=== PATIENT | female | born 1990 | race Caucasian/White ===

== ENCOUNTER → 2016-05-19 | Outpatient (CLI) | payer OTHER ==
[~2016-05-19] MED LIST: GADOBUTROL 10 ML VIAL IVP ONE
== END ==
LOC: FIMAGING 09:25
PROVIDERS: ATTEND Obstetrics & Gynecology
DX: D35.2 Benign neoplasm of pituitary gland (principal)
CPT/HCPCS: A9585

== ENCOUNTER 2016-06-18 22:37 | Emergency (ER) | payer OTHER ==
[2016-06-18 22:42] VITALS: TEMP 98.4; O2SAT 95
--- NOTE | 2016-06-18 22:59 | EDPHY ---
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 She immediately had pain. The pain got better. However she was moving another patient this evening developed worsening right anterior shoulder pain. It hurts with movement. No other signs of trauma. No direct falling or other signs of significant trauma. Her pain is anterior shoulder deep, worse with abduction of her arm, as well as hurts with resistance, also hurts with turning her thumb up and down. No numbness or tingling. No arm weakness. 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 Exam Constitutional appears well nontoxic triage nursing summary reviewed, vital signs reviewed, awake/alert. Eyes normal conjunctivae and sclera, EOMI, PERRLA. HENT normal inspection, atraumatic, moist mucus membranes, no epistaxis, neck supple/ no meningismus, no raccoon eyes. Respiratory clear to auscultation bilaterally, normal breath sounds, no respiratory distress, no wheezing. Cardiovascular rate normal, regular rhythm, no murmur, no edema, distal pulses normal. Gastrointestinal soft, non-tender, no rebound, no guarding, normal bowel sounds, no distension, no pulsatile mass. Genitourinary no CVA tenderness. Musculoskeletal right shoulder exam: tender palpation on deep palpation to the anterior shoulder. Has pain with abduction of the right arm, no weakness, neurovascular intact distally, no significant swelling. Good cap refill, warm extremity. Pain with abduction as well as pronation supination of the hand. no midline vertebral tenderness, full range of motion, no calf swelling, no tenderness of extremities, no meningismus, good pulses, neurovascularly intact. Skin pink, warm, & dry, no rash, skin atraumatic. Neurologic awake, alert and oriented x 3, AAOx3, moves all 4 extremities equally, motor intact, sensory intact, CN II-XII intact, normal cerebellar, normal vision, normal speech. Psychiatric normal mood/affect. Heme/Lymph/Immune no lymphadenopathy. Differential Diagnosis: Includes but is not limited to in a particular order rotator cuff injury, AC joint separation, doubt bony fracture Medical Decision Making: plan for this patient x-ray right shoulder, sling, anti -inflammatory pain medicine and ice. She is unemployed she will need to follow up with [facility] given this is a work related injury. I will also refer her to Orthopedics. Most likely she has a rotator cuff injury. Re-evaluation: ED x-ray right shoulder. Interpreted by myself. No acute fracture. 1206AM: Patient given ibuprofen for pain control in the emergency room. Do recommend sling, follow up with Orthopedics, employee health, ibuprofen. She understands she understands return to the emergency room if any further symptoms questions or concerns. Source: Patient - Personal History LMP (Females 10-55): Over 28 Days Ago - Medical/Surgical History Hx Asthma: No Hx Chronic Respiratory Disease: No Hx Diabetes: No Hx Cardiac Disease: No Hx Renal Disease: No Hx Cirrhosis: No Hx Alcoholism: No Hx HIV/AIDS: No Hx Splenectomy or Spleen Trauma: No Other PMH: pitiary tumor - Social History Smoking Status: Never smoked Constitutional: Initial Vital Signs Temperature (C) 36.9 C 06/18/16 22:39 Heart Rate 79 06/18/16 22:39 Respiratory Rate 20 06/18/16 22:39 Blood Pressure 112/68 06/18/16 22:39 O2 Sat (%) 95 06/18/16 22:39 O2 Delivery Mode Room Air Allergies/Adverse Reactions: No Known Allergies Allergy (Unverified 06/18/16 22:38) Home Medications: Medication Instructions Recorded NK [No Known Home Meds] 01/01/15 Medical Decision Making - Diagnostics Imaging: Imaging Impressions Shoulder X-Ray 06/18/16 23:03 Impression: Normal. - Data Points Medications Given: Discontinued Medications Ibuprofen (Motrin) 600 mg PO EDNOW ONE Stop: 06/19/16 00:00 Last Admin: 06/19/16 00:02 Dose: 600 mg Departure - Departure Disposition: Home, Routine, Self-Care Clinical Impression: Rotator cuff injury Qualifiers: Encounter type: initial encounter Laterality: right Qualified Code(s): S46.001A - Unspecified injury of muscle(s) and tendon(s) of the rotator cuff of right shoulder, initial encounter Condition: Good Instructions: Rotator Cuff Injury (ED) Additional Instructions: 1. Stay in your sling for comfort. 2.Ice her shoulder. 3.Follow up with employee health. 4.Follow up with Orthopedics. Referrals: EZEKIEL RIZO [Primary Care Provider] - As per Instructions Pete Mckenna MD [Medical Doctor] - As per Instructions
[2016-06-18] MEDS ORDERED: IBUPROFEN 600 MG TAB PO ONE (23:59)
[2016-06-19] MEDS ORDERED: IBUPROFEN 600 MG TAB PO ONE
[2016-06-19 00:23] VITALS: BP 132/95; PULSE 75; RESP 16
== END 2016-06-19 00:23 | disposition home or self-care (01) ==
DX: S46.001A Unspecified injury of muscle(s) and tendon(s) of the rotator cuff of right shoulder, initial encounter (principal); X58.XXXA Exposure to other specified factors, initial encounter; Y92.239 Unspecified place in hospital as the place of occurrence of the external cause; Y99.0 Civilian activity done for income or pay; Y93.89 Activity, other specified
CPT/HCPCS: A4565

== ENCOUNTER → 2016-11-29 | Outpatient (CLI) | payer OTHER | LOC: FIMAGING 09:35 | PROVIDERS: ATTEND Orthopaedic Surgery | DX: S73.192A Other sprain of left hip, initial encounter (principal); R60.0 Localized edema ==

== ENCOUNTER → 2018-01-21 | Outpatient (CLI) | payer OTHER | LOC: FIMAGING 10:36 | PROVIDERS: ATTEND Neurological Surgery | DX: M54.6 Pain in thoracic spine (principal) ==

== ENCOUNTER 2018-02-15 05:47 | Inpatient (IN) | payer OTHER ==
--- NOTE | 2018-02-08 07:54 | PDANEPAE ---
ANE History of Present Illness L hip pain and labral tear, here for femoroplasty and labral repair ANE Past Medical History - Cardiovascular History Hx Hypertension: No Hx Arrhythmias: No Hx Chest Pain: No Hx Coronary Artery / Peripheral Vascular Disease: No Hx CHF / Valvular Disease: No Hx Palpitations: No - Pulmonary History Hx COPD: No Hx Asthma/Reactive Airway Disease: No Hx Recent Upper Respiratory Infection: No Hx Oxygen in Use at Home: No Hx Sleep Apnea: No - Neurologic History Hx Cerebrovascular Accident: No Hx Seizures: No Hx Dementia: No - Endocrine History Hx Diabetes: No - Renal History Hx Renal Disorders: No - Liver History Hx Hepatic Disorders: No - Neurological & Psychiatric Hx Hx Neurological and Psychiatric Disorders: No - Cancer History Hx Cancer: No - Congenital Disorder History Hx Congenital Disorders: No - GI History Hx Gastrointestinal Disorders: No - Other Health History Other Health History: neg - Chronic Pain History Chronic Pain: Yes (l hip pain) - Surgical History Prior Surgeries: pituatary tumor removed ANE Review of Systems Review of Systems: ANE Patient History - Allergies Allergies/Adverse Reactions: No Known Allergies Allergy (Unverified 06/18/16 22:38) - Home Medications Home Medications: Herbals/Supplements -Info Only 02/01/18 [Last Taken Unknown] Ibuprofen 02/01/18 [Last Taken Unknown] - Smoking Hx Smoking Status: Never smoked - Family Anes Hx Family Hx Anesthesia Complications: neg ANE Physical Exam - Airway Neck exam: FROM Mallampati Score: Class 1 Mouth exam: normal dental/mouth exam - Pulmonary Pulmonary: no respiratory distress - Cardiovascular Cardiovascular: regular rate and rhythym - ASA Status ASA Status: I ANE Anesthesia Plan Anesthesia Plan: general endotracheal anesthesia Total IV Anesthesia: No
--- NOTE | 2018-02-14 21:11 | PDGENHP ---
History and Physical - Chief Complaint Left Hip Pain - History of Present Illness 1.~Bilateral~Hip Dyplasia: LEFT MORE SYMPTOMATIC THAN RIGHT 2.~Bilateral~Femoroacetabular impingement (LUCY) Cam type,~with~resultant labral tear HISTORY OF PRESENT ILLNESS: Madanis a 27 y.o.~very~~active female~who I have had the pleasure to consult on today. 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 ~Madanenjoys cycling, hiking, kayaking, camping, swimming, and going to the gym. Snehal's~bilateral~hip pain (LEFT>RIGHT)~started a year ago, with~no~recalled trauma or injury, and with no~previous complaints. Madandoes not have~a known history of hip dysplasia. Presentation today is of~lateral~bilateral~hip pain. ~The hip~does~wake her~at night and does~click and catch on her. Sitting~does not present a problem~for her.~Madandoes~report suffering from lower back pain episodes. Madanhas not~participated in physical therapy and has not~tried other conservative measures. Madanhas~utilized medication for pain management, including OTC acetaminophen.~Madanhas used medication since the pain began ~ Madanunderstands that she~has a hip and pelvis problem which should be researched and wishes to get a better understanding of her~hip status, followed by an establishment of a treatment strategy, hoping she~would be able to get back to her~well being active life. History: Past medical history:~~ Prolactinoma of Pituitary Relevant familial history:~None Past surgical history:~ No. Surgery Anesthesia 1 Pituitary adenoma general Madandenies problematic issues with general anesthesia in the past. I have reviewed, verified and agree with the past medical, surgical, family and social history. Current Medications:~has a current medication list which includes the following prescription(s): cholecalciferol (vitamin d3), cyanocobalamin (vitamin b-12), sodium chloride, and valacyclovir. ALLERGIES:~has No Known Allergies. Objective: Physical Examination: Snehal~is 5~feet 4~inches tall and weighs 115~Lbs. Snehal~is AAO x3; she~is well-nourished, in NAD. Skin is warm and dry. ~Breathing is non-labored. ~CV with RRR by pulse. Abdomen is soft, NTND. Currently,~she~walks with a normal~gait. Trendelenburg sign is~negative~and proprioception is normal,~both~sides. She~presents with mild~signs of joint laxity. Beightons Score:~4 (elbows and thumbs) Lower spine examination is~negative~for sciatic or femoral nerve irritation with negative~SLR &~femoral stretch tests. Range of motion of the spine is normal~for flexion, extension, and rotations, with no~associated pain. Strength, Sensation and pulses are~normal -~bilaterally Ankles and knees exams are~normal~and no~mal-alignment is evident. She~has no leg length discrepancy. Thigh circumference is~symmetric~with no evidence for muscle atrophy~on both~ sides. Hip ROM (degrees): FL ER At 90~hip FL IR At 90~hip FL AB AD EX IR Neutral hip ER Neutral hip R 110 45 50 40 5 15 60 30 L 120 45 45 40 5 15 60 20 Specific hip and pelvis tests: Impingement Test JOSÉ Roll Add. Longus R +++ +++ Negative Negative L +++ +++ ++ + Glut. Med ITB Posterior Imp R Negative 5/5 strength Negative 5/5 strength Negative L +++ 5/5 strength +++ 5/5 strength Negative Squeeze test measured~normal Bony Symphysis pubis is~pain free~to touch while concentric activity of the rectus abdominis, does not~produce pain at its insertion. Ilio Psos specific tests are~positive for pain during cycling for~both hips~and no snap. HF has~weakness and pain~both hips. Anterior/posterior~capsule tenderness bilateral Greater trochanteric burse is~pain free~on both hips. Piriformis tests: FAIR is~negative,~with no~local signs of neuritis related to sciatic nerve. SIJs examination is~produces pain on~both sides~(L>R)~with normal~JOSÉ in relation and local tenderness. Hamstrings tests are~negative~functional contraction and negative~tendinopathy both hips. On a daily basis, the following percentages reflectDaniel's overall total pain : Deep hip:~90% SIJ:~10% Imaging: Radiology studies which I have personally reviewed, analyzed and measured are below: XR: AP of the hip and pelvis: Performed in a~good~technique Coccyx to pubic symphysis distance~0.7~cm. 0~degrees [place] Lines are~preserved. Minimal~Pathological signs are seen in the Symphysis Pubis. Minimal~Pathological signs are seen at the Ischial tuberosity. ~ Specific measurements show: NSA~ LCE Sourcil~Angle Sharp's angle Lat. Cam Lat. Pincer C.Over~sign Head~Coverage % ATDmm R N 18 13 45 - - - 70 N L N 19 10 42 - - - 70 N Pos. wall sign ISS NAD ~~Dysplasia Comments R Negative Negative 18.7~mm +++ L Negative Negative 19.4~mm +++ Sclerosis Sup. Lat. OA Cysts Joint Space-WBZ Joint Space-Medial R Negative Negative Negative 4.1~mm 3.7~mm L Negative Negative Negative 4.2~mm 3.3~mm X Table lateral: Anterior cam lesion is~seen~on both hips. Alpha Angle: ~ Right~53~dergrees Left~55~degrees Impression and plan:Marina Hageris a 27 y.o.~active female~suffering from symptomatic Bilateral~hip pain due to Hip Dyplasia~and~Femoroacetabular impingement (LUCY) Cam type,~with~ resultant labral tear causing significant disability to~her~and altering her~ sport and life activities. Physical examination, imaging, and~her~story correspond with the diagnosis mentioned above. I explained that hip dysplasia is a condition wherein the hip joint has excessive play~and instability due to a variety of factors, including the depth and adequacy of the socket, the orientation of the femur bone, and ligament laxity around the hip joint. Dysplasia ranges in severity from borderline to shelia, with treatment options being specific to the specific nature of the problem. Left untreated, the instability in the hip joint can cause progressive tearing of the labrum and deterioration of the surface cartilage, ultimately resulting in progressive osteoarthritis of the hip. I explained that femoroacetabular impingement (LUCY - Cam type) arises due to a bony or soft tissue conflict between the femur (ball) and acetabulum (socket) caused by an abnormality in the shape of the femoral head and neck. Over time, repetitive impingement can result in damage to the labrum and adjacent surface cartilage within the socket, ultimately giving rise to progressive osteoarthritis of the hip. I explained that although a labral tear can be a source of pain, it is rarely the root of the problem and typically occurs secondary to an underlying abnormality in the shape and mechanics of the hip joint. I reviewed conservative treatment options for Dysplasia and LUCY including activity modification to avoid positions of impingement or instability, physical therapy, non-steroidal anti-inflammatory medications, and various injections (corticosteroid and PRP) aimed at reducing inflammation in the hip joint or/and preventing dynamic instability and impingement. PRP injections may promote healing and reduce symptoms in certain cases but it will not repair chronically damaged tissue. Although these measures may help to buy time~and reduce current level of symptoms, they are not a definitive solution to the problem given the underlying abnormality in the shape of the hip joint. Patients who have failed conservative management and continue to experience symptoms are candidates for definitive surgical treatment, which may consist of hip arthroscopy alone or in combination with more invasive bony realignment procedures of the hip socket and/or femur called periacetabular osteotomy (FRDEI) or derotational femoral osteotomy (DFO). Hip arthroscopy typically includes treating the labrum with either repair or reconstruction of the torn labrum; as well as addressing the underlying abnormalities by restoring the normal shape to the hip joint. If the cartilage is damaged a Microfracture surgical procedure may also be necessary to help stimulate the growth of fibrocartilage. If a patient requires a labral reconstruction or a Microfracture, the initial rehabilitation from the surgery may take longer, but the intermodal owner operator truck driver results are typically favorable. I reviewed the technical aspects of periacetabular osteotomy (FREDI) including risks, benefits, and expected course of recovery.~Snehal~understands that FREDI is an inpatient procedure carried out through two medium sized incisions on the front and back of the hip joint. The hip socket is cut, realigned, and stabilized with 2 3 internal screws. Risks include infection, bleeding, injury to nearby nerves or vessels, stiffness, persistent pain, instability, failure of bony healing, implant related complications, and venous thromboembolic disease. Rarely, revision surgery may be required to address these problems. Risks, potential complications, side effects and recovery from surgical procedure were discussed in length. We explained how this surgery is an open procedure, and though patients tend to do well in the long-term, it involves significant pain in the first 2-4 weeks post-op and a rather lengthy rehab.~Overall recovery takes approximately 6 12~months depending on the extent of damage and degree of repair. Madanunderstands that she~will undergo hip arthroscopy 1 week prior to the FREDI to address damage inside the hip joint. Snehal~understands that hip arthroscopy and FREDI are two separate procedures that are best performed one week apart, with the arthroscopy commencing first to "tighten up" any pathology evident in the hip joint (labral repair, etc.) and the FREDI open procedure occurring 7-10 days later to realign the acetabulum. Snehal~will review the info presented. In order to obtain more detailed information regarding the alignment, orientation, and shape of the bony hip and pelvis I will order a CT scan to be performed. The results of the CT scan, including femoral torsion and acetabular version measured values and 3D images, will aid me in deciding on the best treatment strategy and surgical pre-planning. In order to better evaluate the soft tissues and cartilage of the hip joint, I will order an MRI scan. We will refer Snehal to physical therapy~for at least~4~months. Madanis going to make a follow up appointment~after completing her~imaging studies. Madanis happy with this plan. I have also supplied~her~with handouts, outlining the expected surgical treatment and rehab involved. I wish~Snehal~all the best, ~~ Cristino Abbott, PAC History Information - Allergies/Home Medication List Allergies/Adverse Reactions: No Known Allergies Allergy (Unverified 06/18/16 22:38) Home Medications: Naproxen BID 02/09/18 [Last Taken Unknown] I have personally reviewed and updated: medical history - Social History Smoking Status: Never smoked Review of Systems Review of Systems: Physical Exam Physical Exam:
[2018-02-15] MEDS ORDERED: ACETAMINOPHEN 500 MG TAB PO ONE (06:07)
[2018-02-15] MEDS ORDERED: PREGABALIN 150 MG CAP PO ONE (06:07)
[2018-02-15] MEDS ORDERED: ceFAZolin 2 GM/DEXTROSE 100 ML IV ONE (06:07)
[2018-02-15] MEDS ORDERED: SCOPOLAMINE HYDROBROMIDE 1 MG/3 DAYS PATCH TD ONE (06:07)
[2018-02-15] MEDS ORDERED: TRANEXAMIC ACID 1,000 MG in NS 100 ML IV ONE (06:07)
[2018-02-15] MEDS ORDERED: MIDAZOLAM 2 MG/2 ML VIAL IVP ONE ×2 (06:07→07:11)
[2018-02-15] MEDS ORDERED: LIDOCAINE 1% 2 ML INJ ID PRN (06:08)
[2018-02-15] MEDS ORDERED: LR 1,000 ML IV ONE (06:08)
[2018-02-15] MEDS ORDERED: CITRATE DEXTROSE SOLN 500 ML BAG ONE (06:14)
--- NOTE | 2018-02-15 07:13 | PDANEPAE ---
ANE Past Medical History - Cardiovascular History Hx Hypertension: No Hx Arrhythmias: No Hx Chest Pain: No Hx Coronary Artery / Peripheral Vascular Disease: No Hx CHF / Valvular Disease: No Hx Palpitations: No - Pulmonary History Hx COPD: No Hx Asthma/Reactive Airway Disease: No Hx Recent Upper Respiratory Infection: No Hx Oxygen in Use at Home: No Hx Sleep Apnea: No Sleep Apnea Screening Result - Last Documented: Negative - Neurologic History Hx Cerebrovascular Accident: No Hx Seizures: No Hx Dementia: No - Endocrine History Hx Diabetes: No Obesity: no - Renal History Hx Renal Disorders: No - Liver History Hx Hepatic Disorders: No - Neurological & Psychiatric Hx Hx Neurological and Psychiatric Disorders: No - Cancer History Hx Cancer: No - Congenital Disorder History Hx Congenital Disorders: No - GI History Hx Gastrointestinal Disorders: No - Other Health History Other Health History: neg - Chronic Pain History Chronic Pain: Yes (l hip pain) - Surgical History Prior Surgeries: LT HIP FEMOROPLASTY,LABRAL REPAIR 02/08/18. pituatary tumor removed ANE Review of Systems Review of Systems: - Exercise capacity METS (RN): 4 METS ANE Patient History - Allergies Allergies/Adverse Reactions: No Known Allergies Allergy (Unverified 06/18/16 22:38) - Home Medications Home medications: home medication list seen and reviewed Home Medications: Naproxen BID 02/09/18 [Last Taken Unknown] - NPO status NPO Status: no food or drink >8 hours NPO Since - Liquids (Date): 02/14/18 NPO Since - Liquids (Time): 23:00 NPO Since - Solids (Date): 02/14/18 NPO Since - Solids (Time): 23:00 - Anes Hx Anes Hx: no prior problems - Smoking Hx Smoking Status: Never smoked - Family Anes Hx Family Hx Anesthesia Complications: neg ANE Labs/Vital Signs - Labs Result Diagrams: 02/15/18 06:20 - Vital Signs Blood Pressure: 130/72 Heart Rate: 93 Respiratory Rate: 17 O2 Sat (%): 97 Height: 160.02 cm Weight: 49.895 kg ANE Physical Exam - Airway Neck exam: FROM Mallampati Score: Class 1 Mouth exam: normal dental/mouth exam - Pulmonary Pulmonary: no respiratory distress, no rales or rhonchi, clear to auscultation - Cardiovascular Cardiovascular: regular rate and rhythym, no murmur, rub, or gallop - ASA Status ASA Status: I ANE Anesthesia Plan Anesthesia Plan: general endotracheal anesthesia, spinal (Morphine)
[2018-02-15] MEDS ORDERED: fentaNYL 100 MCG/2 ML INJ ONE ×2 (07:20→11:29)
[2018-02-15] MEDS ORDERED: PROPOFOL 200 MG/20 ML VIAL ONE (07:21)
[2018-02-15] MEDS ORDERED: morphINE PF 5 MG/10 ML INJ ONE (07:23)
[2018-02-15] MEDS ORDERED: DEXAMETHASONE 4 MG/ML VIAL ONE ×2 (07:41)
[2018-02-15] MEDS ORDERED: ROPIVACAINE HCL 150 MG/30 ML INJ ONE (07:41)
[2018-02-15] MEDS ORDERED: ROCURONIUM 50 MG/5 ML VIAL ONE (07:41)
[2018-02-15] MEDS ORDERED: ONDANSETRON 4 MG/2 ML VIAL ONE (10:45)
[2018-02-15] MEDS ORDERED: ESMOLOL HCL 100 MG/10 ML VIAL IV ONE (11:55)
[2018-02-15] MEDS ORDERED: fentaNYL 100 MCG/2 ML INJ IVP PRN (11:56)
[2018-02-15] MEDS ORDERED: NALOXONE HCL 0.4 MG/ML INJ IVP PRN ×3 (11:56→13:30)
[2018-02-15] MEDS ORDERED: LR 500 ML IV PRN (11:56)
[2018-02-15] MEDS ORDERED: DIAZEPAM 5 MG/ML 1 ML SYR IVP PRN (11:56)
[2018-02-15] MEDS ORDERED: PROMETHAZINE HCL 25 MG/ML INJ IVP PRN (11:56)
[2018-02-15] MEDS ORDERED: oxyCODONE IR 5 MG TAB PO PRN (11:56)
[2018-02-15] MEDS ORDERED: HYDROCODONE/APAP 5/325 TAB PO PRN (11:56)
[2018-02-15] MEDS ORDERED: DEXAMETHASONE 4 MG/ML VIAL IVP PRN (11:56)
[2018-02-15] MEDS ORDERED: ACETAMINOPHEN 500 MG TAB PO PRN (11:56)
[2018-02-15] MEDS ORDERED: LACTULOSE 20 GM/30 ML UDCUP PO PRN (12:55)
[2018-02-15] MEDS ORDERED: ONDANSETRON 4 MG/2 ML VIAL IVP PRN ×2 (12:55→13:30)
[2018-02-15] MEDS ORDERED: MAGNESIUM HYDROXIDE 30 ML UDCUP PO PRN (12:55)
[2018-02-15] MEDS ORDERED: POLYETHYLENE GLYCOL 3350 17 GM PKT PO PRN (12:55)
[2018-02-15] MEDS ORDERED: BISACODYL 10 MG SUPP PR PRN (12:55)
[2018-02-15] MEDS ORDERED: diphenhydrAMINE 25 MG CAP PO PRN (12:57)
[2018-02-15] MEDS ORDERED: METOCLOPRAMIDE 10 MG/2 ML VIAL IVP PRN ×2 (12:57→13:30)
[2018-02-15] MEDS ORDERED: HYDROmorphONE/DILAUDID 6 MG/30 ML PCA IV PRN (12:57)
[2018-02-15] MEDS ORDERED: NS 1,000 ML IV SCH (13:00)
--- NOTE | 2018-02-15 13:10 | POSTANESTH ---
Post Anesthetic Evaluation Cardiovascular Status: Similar to Pre-Op Cond (Tachycardic (110). Will observe and give a little fluid.) Respiratory Status: Normal, Stable, Similar to Pre-op Cond. Level of Consciousness/Mental Status: Can Participate in Eval, Alert and Oriented Pain Control: Adequate, Prn Tx Ordered Nausea/Vomiting Control: Adequate, Prn Tx Ordered Complications Possibly Related to Anesthesia: None Noted
[2018-02-15] MEDS ORDERED: RN MESSAGE:REGARDING ANALGESIC ORDERING DR MISC SCH (13:30)
[2018-02-15] MEDS ORDERED: oxyCODONE IR 15 MG TAB PO SCH (14:00)
[2018-02-15] MEDS: RN MESSAGE:DATE/TIME OF ADMIN MISC SCH (14:51)
[2018-02-15] MEDS: NAPROXEN SODIUM 220 MG TAB PO SCH ×2 (15:03→21:22)
--- NOTE | 2018-02-15 15:09 | PDMN ---
Medical Necessity Medical necessity: [facility] musculoskeletal sgy inpt only OP: Fox RAI -- [id number] APPROVED FOR INPT SURGERY 02/15/18
[2018-02-15] MEDS: oxyCODONE IR 5 MG TAB PO SCH ×3 (15:11→21:25)
[2018-02-15] MEDS: SENNOSIDES/DOCUSATE SODIUM TAB PO SCH (21:22)
[2018-02-15] MEDS: DIAZEPAM 2 MG TAB PO PRN (23:11)
[2018-02-16] MEDS: RN MESSAGE:DATE/TIME OF ADMIN MISC SCH ×2 (02:03→09:53)
[2018-02-16] MEDS: oxyCODONE IR 5 MG TAB PO SCH ×6 (02:05→22:35)
[2018-02-16] MEDS: NAPROXEN SODIUM 220 MG TAB PO SCH ×3 (08:46→22:36)
[2018-02-16] MEDS: SENNOSIDES/DOCUSATE SODIUM TAB PO SCH ×2 (08:47→20:38)
[2018-02-16] MEDS: PANTOPRAZOLE SODIUM 40 MG TAB PO SCH (08:47)
--- NOTE | 2018-02-16 09:54 | SUROPNOTE ---
SILVIA Operative Report - Surgery Surgery was performed at [facility] on~02/15/18~ Diagnosis:~Left 1. Hip Acetabular Dysplasia ~ Operation: Left~Tiffany Acetabular Osteotomy (FREDI) Surgeon: Erlin Lindo MD Multimedia Instructional Designer:~~Iliana Malhotra MD Anesthetic: General + epidural Procedure: General anesthetic. Antibiotics given. Cell saver in use. Fluoroscopy. Phase 1: Position lateral, diagonal skin incision between ischial tuberosity and greater trochanter as for posterior hip approach. Blunt split of glut max fibers. Identification of fat pad overlying sciatic nerve. Exposure of sciatic nerve under fat pad, gently retracting it away-medially to ischial tuberosity.~The nerve was bifurcating through the piriformis and as so the piriformis part which was between there two nerve branchs was released.~Exposure of subcotoloid fossa proximal to short rotators. Using osteotomes and under fluoroscopy, osteotomy of subcotoloid fossa to sciatic notch proximal to ischial spine. Closure of lateral cut. Patient is turned supine. Phase 2: Skin incision just distal to ASIS. Using diathermy the iliac spine was exposed and inguinal ligament + Sartorious were retracted medially, taking the LFCN with them, protecting it. Inner ilium was dissected from iliacus muscle bluntly , with a cob and swab. Dissection continued towards lateral superior ramus pubis. Using fluoroscopy an osteotomy of lateral superior ramus, just medial to tear drop, was performed with~curved fish mouth osteotome. Phase 3: Osteotomy lines of the ilium were marked with diathermy as pre planned according to XR/CT and expected correction of acatabulum. 2 Shanz screws were drilled into central acetabular fragment, corresponding with planned correction angles, in order to mobilize central acetabular fragment after osteotomy is complete. ~Iliac osteotomy was performed with reciprocating saw and the main acetabular fragment was moved to realign weight bearing position. After confirmation of correction using fluoroscopy in AP and false profile planes, the fragment was fixed with 2 -~5.5mm~~full threaded~screws~and 1 -~4mm~~full threaded~screw. Inguinal ligament and Sartorious were attached back to ASIS through drill holes. Incision was closed according to soft tissue layers. Skin was closed with~subdermal Monocryl. Final fluoro shots were obtained to confirm position/correction. After surgery~Snehal~moved both lower limbs and had no NV motor compromise. Specimen - none Bleeding -~500ml Complication - none Evaluation under anesthesia: IR at 90 degrees hip flexion prior to FREDI was~45~degrees and after FREDI was 25~ degrees. Bleeding:~500~cc into cell-saver, 270~of blood products were returned to patient. Post op instructions: 1.~Non~weight bearing crutches for 2~weeks 2. Epidural analgesia for 24-48 hours 3. Continuous SCD 4. Aspirin 81 mg X1 day once Epidural is discontinued 5. Avoid hip flexion past 90 and hip External rotation. 6. PT according to my recommendations at follow up visit Kind regards, Dr. Erlin Lindo .
--- NOTE | 2018-02-16 11:35 | GCON ---
INTERNAL MEDICINE CONSULT DATE OF CONSULTATION: 02/16/2018 REFERRING PHYSICIAN: Erlin Lindo MD REASON FOR CONSULTATION: Medical management. 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 She underwent surgery on 02/15/2018, without any complications. Please refer to surgical note for details. She currently has epidural analgesia for 24-48 hours and will be on aspirin once daily once the epidural is discontinued. Currently, she denies any pain. She is sitting comfortably in her chair, and has been working with Physical therapy on ambulation and hopes to go home later this week once she is mobile. She denies any nausea, vomit ing. She ate a good breakfast. She is working on her bowel protocol with the nursing staff. She spring s had no chest pain, shortness of breath, itching, rash, or diarrhea. REVIEW OF SYSTEMS: A 10-point review of systems was done and is negative except as stated in the HPI . PAST MEDICAL HISTORY: Hip dysplasia. FAMILY HISTORY: Significant for hypothyroidism in most of the women in her family. Maternal grandmo ther had breast cancer. Maternal grandfather had prostate cancer. 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 She does not smoke, and rarely drinks any alcohol. PHYSICAL EXAMINATION: VITAL SIGNS: She is afebrile. Heart rate is 78, blood pressure 98/55, respir ations 16. She is 98% on room air. GENERAL: She is a very nice 27-year-old in no distress. She is alert and oriented. Speech is clear and fluent. HEENT: Atraumatic. Pupils equal. Extraocular mo vements intact. Mucous membranes moist. Oropharynx clear. NECK: Supple. No adenopathy. HEART: Regular rate and rhythm. No murmur, gallop, or rub. LUNGS: Clear to auscultation. No wheeze, rhon chi, or rales. ABDOMEN: Soft, nontender, nondistended. EXTREMITIES: She has SCDs on bilaterally. No significant edema. NEUROLOGIC: Speech is fluent. She is alert and oriented. She can move all extremities, although has some tenderness on her hip with movement. SKIN: No rash. Did not examine the incisions. PSYCHIATRIC: Normal mood and she is appropriate. LABORATORY DATA: CBC shows an H and H of 9.7 and 28.3. Electrolytes and renal function are normal. ASSESSMENT AND PLAN: A 27-year-old who underwent left julián-acetabular osteotomy for left hip acetabu lar dysplasia. Is recovering in the postop course. She has no complaints and no complications. We will continue to follow as needed for any medical issues that should arise. Deep venous thrombosis p rophylaxis plan is to start aspirin 81 mg daily once her epidural is discontinued. Thank you for the consult, we will continue to follow along. /[id number]/MODL
[2018-02-16] MEDS: DIAZEPAM 2 MG TAB PO PRN (12:58)
--- NOTE | 2018-02-16 14:32 | ASMTCMCOM ---
CM Note CM Note Notes: Pt had planned L FREDI, resides with spouse. PT rec home/outpatient. Pt mom to assist at d/c. No CM d/c needs identified. CM available for changes/needs. Anticipate pt will d/c when medically stable. Date Signed: 02/16/2018 02:31 PM Electronically Signed By:SUREKHA Horton
[2018-02-16] MEDS: oxyCODONE IR 5 MG TAB PO PRN (14:43)
--- NOTE | 2018-02-16 19:30 | PDPAINCON ---
Pain Management Consultation Patient referred by : Guicho - Subjective Pain at rest (/10): 3 Pain with activity (/10): 6 Pain is: under control Activity: out of bed with assistance - Objective Technique: spinal opioid Vital signs: stable - Assessment/Plan Assessment/Plan: pain well-controlled, continue current mgmt, other (Excellent analgesia until about 10 am today. Minimal to no SE's.)
--- NOTE | 2018-02-16 21:31 | SOAPPROG ---
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 She had SALES REPRESENTATIVE CASH REGISTERS started earlier this evening for better analgesic management. Harmon is still in place. She is eating well, no nausea. She denies cp or sob. Objective: Vital Signs Temp Pulse Resp BP Pulse Ox 36.8 C 104 H 16 92/55 L 95 02/16/18 20:00 02/16/18 20:00 02/16/18 20:00 02/16/18 20:00 02/16/18 20:00 Laboratory Results 02/16/18 05:00 02/16/18 05:00 02/15/18 02/16/18 02/17/18 05:59 05:59 05:59 Intake Total 3730 2250 Output Total 3550 1900 Balance 180 350 Left Hip: dressings clean dry intact edema and ecchymosis no thigh numbness NVI distally Full ROM of foot and ankle ICD10 Worksheet Patient Problems: Problems Problem Status Onset Post-operative pain Acute - ICD10 Problem Qualifiers (1) Post-operative pain
[2018-02-17] MEDS: DIAZEPAM 2 MG TAB PO PRN ×3 (00:44→21:31)
[2018-02-17] MEDS: oxyCODONE IR 5 MG TAB PO SCH ×6 (02:00→21:31)
[2018-02-17] MEDS: NAPROXEN SODIUM 220 MG TAB PO SCH ×3 (08:38→21:31)
--- NOTE | 2018-02-17 08:58 | HOSPPROG ---
Hospitalist Progress Note Assessment/Plan: [facility] Patient Name: ROBB DIXON Rpt#: [id number] Unit Number: [id number] Attending/ER Physician: Erlin Lindo MD Patient Type: ADM IN Adm Date/Source: 02/15/18 PHY Discharge Date: Primary Carrier: [employer] Robb is a 27 y/o who underwent a Left periacetabular osteotomy for hip dysplasia. First encounter, chart reviewed. 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 Objective: Vital Signs Temp Pulse Resp BP Pulse Ox 36.5 C 94 16 99/56 L 96 02/17/18 07:59 02/17/18 07:59 02/17/18 07:59 02/17/18 07:59 02/17/18 07:59 Laboratory Results 02/16/18 05:00 02/16/18 05:00 02/16/18 02/17/18 02/18/18 05:59 05:59 05:59 Intake Total 3730 4050 500 Output Total 3550 3250 Balance 180 800 500 - Physical Exam Constitutional: no apparent distress Eyes: PERRL Ears, Nose, Mouth, Throat: hearing normal Cardiovascular: regular rate and rhythym, tachycardia Respiratory: no respiratory distress Skin: warm, other (left hip area, upper thigh area w some swelling) Musculoskeletal: full muscle strength Neurologic: AAOx3 Psychiatric: interacting appropriately ICD10 Worksheet Patient Problems: Problems Problem Status Onset Post-operative pain Acute
[2018-02-17] MEDS: SENNOSIDES/DOCUSATE SODIUM TAB PO SCH ×2 (10:06→21:31)
[2018-02-17] MEDS: ASPIRIN EC 81 MG TAB PO SCH (10:06)
[2018-02-17] MEDS: PANTOPRAZOLE SODIUM 40 MG TAB PO SCH (10:11)
[2018-02-17] MEDS: oxyCODONE IR 5 MG TAB PO PRN (12:28)
--- NOTE | 2018-02-17 18:40 | SOAPPROG ---
SOAP Progress Note Assessment/Plan: Assessment: 27 yo F POD2 s/p L FREDI, doing well post-op. 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 Lindo 02/17/18 18:37 Subjective: Pain controlled on GUEST SERVICE SUPERVISOR, had attempted to wean off today but had some pain after ambulating. Overall feeling better than yesterday. No dizziness, SOB, CP, N/V. Harmon has been removed and voiding. Objective: Vital Signs Temp Pulse Resp BP Pulse Ox 36.8 C 104 H 16 98/56 L 97 02/17/18 17:55 02/17/18 17:55 02/17/18 17:55 02/17/18 17:55 02/17/18 17:55 Laboratory Results 02/16/18 05:00 02/16/18 05:00 02/16/18 02/17/18 02/18/18 05:59 05:59 05:59 Intake Total 3730 4050 1900 Output Total 3550 3250 1100 Balance 180 800 800 Gen: NAD, pleasant LLE: Hip dressings c/d/i Denies LFCN sensation changes (some numbness she attributes to ice) 5/5 TA, GSC, EHL Palpable distal pulses ICD10 Worksheet Patient Problems: Problems Problem Status Onset Post-operative pain Acute
[2018-02-17] MEDS: ONDANSETRON DISINTEGRATING 4 MG TAB PO PRN (21:31)
[2018-02-18] MEDS: oxyCODONE IR 5 MG TAB PO SCH ×5 (01:45→17:11)
[2018-02-18] MEDS: ONDANSETRON DISINTEGRATING 4 MG TAB PO PRN (05:56)
[2018-02-18] MEDS: NAPROXEN SODIUM 220 MG TAB PO SCH ×2 (08:32→17:10)
[2018-02-18] MEDS: ASPIRIN EC 81 MG TAB PO SCH (08:33)
[2018-02-18] MEDS: SENNOSIDES/DOCUSATE SODIUM TAB PO SCH (08:34)
[2018-02-18] MEDS: ACETAMINOPHEN 325 MG TAB PO PRN ×2 (08:34→13:29)
[2018-02-18] MEDS: PANTOPRAZOLE SODIUM 40 MG TAB PO SCH (08:35)
--- NOTE | 2018-02-18 10:25 | HOSPPROG ---
Hospitalist Progress Note Assessment/Plan: Snehal is a 27 y/o who underwent a Left periacetabular osteotomy for hip dysplasia. First encounter, chart reviewed. 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 Still having pain when getting up. Feels increase in pain after 3 hours of pain meds. Objective: Vital Signs Temp Pulse Resp BP Pulse Ox 36.9 C 94 16 100/54 L 96 02/18/18 08:00 02/18/18 08:00 02/18/18 08:00 02/18/18 08:00 02/18/18 08:00 Laboratory Results 02/18/18 04:22 02/16/18 05:00 02/17/18 02/18/18 02/19/18 05:59 05:59 05:59 Intake Total 4050 2750 400 Output Total 3250 1100 Balance 800 1650 400 - Physical Exam Constitutional: no apparent distress, appears nourished, not in pain Eyes: PERRL, anicteric sclera, EOMI Ears, Nose, Mouth, Throat: moist mucous membranes, hearing normal, ears appear normal Cardiovascular: No JVD, No tachycardia, No edema Respiratory: no respiratory distress, no rales or rhonchi, reduced air movement Gastrointestinal: normoactive bowel sounds, No tenderness, No ascites Skin: warm, normal color, No mottled Musculoskeletal: pain with ROM, muscular tenderness, abnormal gait, generalized weakness Neurologic: AAOx3 Psychiatric: interacting appropriately, not anxious, not encephalopathic, thought process linear ICD10 Worksheet Patient Problems: Problems Problem Status Onset Post-operative pain Acute
[2018-02-18] MEDS: DIAZEPAM 2 MG TAB PO PRN (13:27)
[2018-02-18 15:55] VITALS: BP 102/60
--- NOTE | 2018-02-22 07:04 | GDS ---
Snehal underwent a left periacetabular osteotomy for left hip acetabular dysplasia on February 16, 2018. Intraoperatively, spinal was placed as well as a Harmon. She was well pain managed postoperatively with SHANK TURNER, spinal and oral analgesia. Her second postoperative day, the Harmon was removed. She was transitioned to oral analgesia by her second postoperative day. Pelvis x-rays were obtained on her third postoperative day, which showed good bone and screw fixation and she was discharged on the same day to home. She will be nonweightbearing on her left lower extremity for 2 weeks until she has her [address] Lindo. She will go home with SCDs to be worn 24 hours a day 7 days a week for 2 weeks and thereafter only at night for 1 more week. She will also be taking 81 mg baby aspirin daily for 1 month. Both of these for DVT prophylaxis. She was discharged in good condition. /[id number]/MODL MTDD
== END 2018-02-18 17:34 | disposition home or self-care (01) | DRG 941 ==
LOC: F3E 05:47 → EDSTATUS 07:15 → F3N 13:36
PROVIDERS: ADMIT Orthopaedic Surgery Sports Medicine; ATTEND Orthopaedic Surgery Sports Medicine
DX: G89.18 Other acute postprocedural pain (principal); Q65.89 Other specified congenital deformities of hip
CPT/HCPCS: 97116-GP; 97161-GP; 97166-GO; 97530-GP; 97535-GO; C1713; J0690; J1100; J1170; J2250; J2274; J2405; J2704; J2795; J3010

== ENCOUNTER 2018-08-27 17:40 | Emergency (ER) | payer OTHER | END 2018-08-27 18:38 | disposition home or self-care (01) ==